=== PATIENT | male | born 1980 | race Caucasian/White ===

== ENCOUNTER 2019-01-28 09:03 | Emergency (ER) | payer MEDICARE, MEDICAID ==
[~2019-01-28] VITALS: Ht 177.8 cm; Wt 99.0 kg
[2019-01-28 09:06] VITALS: BP 125/86
== END 2019-01-28 09:30 | disposition left against medical advice (07) ==
LOC: ER 09:12
DX: R46.2 Strange and inexplicable behavior (principal)
CPT/HCPCS: 99284